=== PATIENT | female | born 1985 | race American Indian/Alaskan Native ===

== ENCOUNTER 2017-03-21 14:51 | Emergency (ER) | payer OTHER ==
[2017-03-21 14:58] VITALS: TEMP 98.8
[2017-03-21] MEDS ORDERED: Sodium Chloride 0.9% 1,000 ML IV STA (15:21)
--- NOTE | 2017-03-21 15:31 | ED PDOC ---
Arrival/HPI - General Chief Complaint: Headache Time Seen by Provider: 03/21/17 14:54 Historian: Patient - History of Present Illness Narrative History of Present Illness (Text): 03/21/17 15:26 31yo female with PMHx of Anemia and headaches, present with complaint of intermittent headache for a month now. States she started having watery diarrhea x 6 this morning with diffuse abdominal pain. Notes that her headache is similar to her previous headaches. States shew as told her headache is secondary to her Anemia. She notes that she was transfused the last time she had similar headache in November. States her daughter have viral sickness. + Nausea. Denies vomiting, melena, hematemesis, focal weakness, slurred speech, chest pain, SOB, fever, weakness, visual changes, travel, any other complaint. Past Medical History - Provider Review Nursing Documentation Reviewed: Yes - Cardiac Hx Cardiac Disorders: No - Pulmonary Hx Respiratory Disorders: No - Neurological Hx Neurological Disorder: No - HEENT Hx HEENT Disorder: No - Renal Hx Renal Disorder: No - Endocrine/Metabolic Hx Endocrine Disorders: No - Hematological/Oncological Hx Blood Disorders: Yes Hx Anemia: Yes - Integumentary Hx Dermatological Disorder: No - Musculoskeletal/Rheumatological Hx Musculoskeletal Disorders: No - Gastrointestinal Hx Gastrointestinal Disorders: No - Genitourinary/Gynecological Hx Genitourinary Disorders: No - Psychiatric Hx Psychophysiologic Disorder: No Hx Substance Use: No - Surgical History Hx Tubal Ligation: Yes Family/Social History - Physician Review Nursing Documentation Reviewed: Yes Family/Social History: Unknown Family HX Smoking Status: Never Smoked Hx Alcohol Use: Yes Frequency of alcohol use: Socially Hx Substance Use: No Allergies/Home Meds Allergies/Adverse Reactions: Allergies scallops Allergy (Verified 03/21/17 14:54) RASH Review of Systems - Physician Review All systems were reviewed & negative as marked: Yes - Review of Systems Constitutional: Normal Eyes: Normal ENT: Normal Respiratory: Normal Cardiovascular: Normal Gastrointestinal: Abdominal Pain, Diarrhea, Nausea. absent: Constipation, Vomiting, Hematemesis Genitourinary Female: Normal Musculoskeletal: Normal Skin: Normal Neurological: Headache. absent: Dizziness, Focal Weakness, Gait Changes, Speech Changes, Facial Droop Endocrine: Normal Hemo/Lymphatic: Normal Psychiatric: Normal Physical Exam Vital Signs Reviewed: Yes Vital Signs Temp Pulse Resp BP Pulse Ox 03/21/17 17:30 74 18 130/78 100 03/21/17 15:59 98.8 F 90 18 132/74 98 03/21/17 14:54 98.8 F 90 16 136/83 99 Temperature: Afebrile Blood Pressure: Normal Pulse: Regular Respiratory Rate: Normal Appearance: Positive for: Well-Appearing, Non-Toxic, Comfortable Pain Distress: None Mental Status: Positive for: Alert and Oriented X 3 - Systems Exam Head: Present: Atraumatic, Normocephalic Pupils: Present: PERRL Extroacular Muscles: Present: EOMI Conjunctiva: Present: Normal Mouth: Present: Moist Mucous Membranes Neck: Present: Normal Range of Motion Respiratory/Chest: Present: Clear to Auscultation, Good Air Exchange. No: Respiratory Distress, Accessory Muscle Use Cardiovascular: Present: Regular Rate and Rhythm, Normal S1, S2. No: Murmurs Abdomen: Present: Normal Bowel Sounds, Other (Soft). No: Tenderness, Distention , Peritoneal Signs, Rebound, Guarding, McBurney's Point Tender, Rovsing's Sign Present Back: Present: Normal Inspection Upper Extremity: Present: Normal Inspection. No: Cyanosis, Edema Lower Extremity: Present: Normal Inspection. No: Edema Neurological: Present: GCS=15, CN II-XII Intact, Speech Normal, Motor Func Grossly Intact, Normal Sensory Function, Normal Cerebellar Funct, Norm Deep Tendon Reflexes, Gait Normal, Memory Normal, Normal 2Pt Descrimination, Other ( No focal neurological deficit) Skin: Present: Warm, Dry, Normal Color. No: Rashes Psychiatric: Present: Alert, Oriented x 3, Normal Insight, Normal Concentration Medical Decision Making ED Course and Treatment: 03/21/17 16:51 31yo female in ED for headache x one month and diarrhea x6 since this morning. she was hemodyanmically stable in ED. Lab was unremarkable. Pt was hydrated , toradol and Zofran given. On r evaluation pt states her symptoms improved. She did not have diarrhea in ED. She will not be given antidiarrhea at this time, diarrhea only started this morning (To avoid dumping syndrome). She is eating and drinking well. she have no focal neurological deficit. she have seen a Doctor in the past for the is headache. No imaging will be done at this time. All result was DW the pt. She was advised to f/u with her PMD. Diarrhea likely viral in nature. Will DC home with rx of Fioricet. TRT ED for any new or worsening symptoms - Lab Interpretations Lab Results: 03/21/17 16:00 03/21/17 16:00 Lab Results 03/21/17 16:00: Sodium 140, Potassium 4.1, Chloride 108 H, Carbon Dioxide 21, Anion Gap 16, BUN 13, Creatinine 0.7, Est GFR ( Amer) > 60, Est GFR (Non- Af Amer) > 60, Random Glucose 93, Calcium 9.5, Total Bilirubin 0.4, AST 25, ALT 24, Alkaline Phosphatase 105, Total Protein 8.5 H, Albumin 4.4, Globulin 4.1, Albumin/Globulin Ratio 1.1, Lipase 130 03/21/17 16:00: Urine Color Yellow, Urine Appearance Clear, Urine pH 5.5, Ur Specific [place] >= 1.030, Urine Protein Trace H, Urine Glucose (UA) Negative, Urine Ketones Negative, Urine Blood Negative, Urine Nitrate Negative, Urine Bilirubin Negative, Urine Urobilinogen 0.2, Ur Leukocyte Esterase Negative, Urine RBC Negative, Urine WBC 2 - 5, Ur Epithelial Cells 3 - 4, Urine Bacteria Few 03/21/17 16:00: PT 12.2, INR 1.07, APTT 34.0 03/21/17 16:00: WBC 7.0, RBC 4.45, Hgb 10.0 L, Hct 33.1 L, MCV 74.4 L, MCH 22.5 L, MCHC 30.2 L, RDW 17.0 H, Plt Count 360, MPV 10.8, Gran % 78.1 H, Lymph % ( Auto) 17.4 L, [place] % (Auto) 3.7, Eos % (Auto) 0.7 L, Baso % (Auto) 0.1, Gran # 5.48, Lymph # 1.2, [place] # 0.3, Eos # 0.1, Baso # 0.01 - Medication Orders Current Medication Orders: Discontinued Medications Famotidine (Pepcid) 20 mg IVP STAT STA Stop: 03/21/17 15:22 Last Admin: 03/21/17 16:30 Dose: 20 mg IVP Administration Document 03/21/17 16:30 SF (Rec: 03/21/17 16:39 [facility] [id number]) Charges for Administration # of IVP Administrations 1 Sodium Chloride (Sodium Chloride 0.9%) 1,000 mls @ 1,000 mls/hr IV .Q1H STA Stop: 03/21/17 16:20 Last Admin: 03/21/17 16:41 Dose: 1,000 mls/hr eMAR Start Stop Document 03/21/17 16:41 SF (Rec: 03/21/17 16:41 SF [facility] [id number]) Intravenous Solution Start Date 03/21/17 Start Time 16:41 End Date 03/21/17 End time 17:41 Total Infusion Time 60 Ketorolac Tromethamine (Toradol) 30 mg IVP STAT STA Stop: 03/21/17 15:23 Last Admin: 03/21/17 16:30 Dose: 30 mg MAR Pain Assessment Document 03/21/17 16:30 SF (Rec: 03/21/17 16:39 [facility] [id number]) Pain Reassessment Is this a pain reassessment? Yes Sleep Is patient sleeping during reassessment? No Presence of Pain Presence of Pain Yes Pain Scale Used Pain Scale Used Numeric IVP Administration Document 03/21/17 16:30 SF (Rec: 03/21/17 16:39 [facility] [id number]) Charges for Administration # of IVP Administrations 1 Ondansetron HCl (Zofran Inj) 4 mg IVP STAT STA Stop: 03/21/17 15:22 Last Admin: 03/21/17 16:30 Dose: 4 mg IVP Administration Document 03/21/17 16:30 SF (Rec: 03/21/17 16:39 SF [facility] [id number]) Charges for Administration # of IVP Administrations 1 Disposition/Present on Arrival - Present on Arrival Any Indicators Present on Arrival: No History of DVT/PE: No History of Uncontrolled Diabetes: No Urinary Catheter: No History of Decub. Ulcer: No History Surgical Site Infection Following: None - Disposition Have Diagnosis and Disposition been Completed?: Yes Diagnosis: Diarrhea, Headache Disposition: HOME/ ROUTINE Disposition Time: 17:35 Patient Plan: Discharge Patient Problems: Current Active Problems Problem Status Onset Diarrhea Acute Headache Acute Condition: STABLE Discharge Instructions (ExitCare): Acute Headache (ED), Acute Diarrhea (ED) Additional Instructions: Drink plenty of fluid and take medications as directed Follow up with your doctor Return to Ex for any new or worsening symptoms Prescriptions: Acetaminophen/Butalbital/Caf [Fioricet] 1 tab PO Q6 #10 tab Ondansetron ODT [Zofran ODT] 4 mg PO Q6 #5 odt Referrals: Ashwin Quinn MD [Primary Care Provider] - Follow up with primary Forms: [employer] (Gabonese)
[2017-03-21 16:12] VITALS: RESP 18
[2017-03-21 16:34] LABS: BASO # 0.01 [, K/mm3] (0.0-2.0); BASO % 0.1 % (0.0-3.0); EOS # 0.1 (0.0-0.7); EOS % 0.7 % (1.5-5.0); GRAN # 5.48 (1.4-6.5); GRAN % 78.1 % (50.0-68.0); LYMPH # 1.2 (1.2-3.4); LYMPH % 17.4 % (22.0-35.0); MEAN CELL VOLUME 74.4 fl (80.0-105.0); MEAN CORPUSCULAR HEMOGLOBIN 22.5 pg (25.0-35.0); MEAN CORPUSCULAR HGB CONC 30.2 g/dl (31.0-37.0); MEAN PLATELET VOLUME 10.8 fl (7.0-11.0); MONO # 0.3 (0.1-0.6); MONO % 3.7 % (1.0-6.0); PH,URINE 5.5 (4.7-8.0); RBC 4.45 [, 10^6/uL] (3.5-6.1); URINE BILIRUBIN NEGATIVE (NEGATIVE); URINE BLOOD NEGATIVE (NEGATIVE); URINE GLUCOSE (UA) NEGATIVE (NEGATIVE); URINE LEUKOCYTE ESTERASE NEGATIVE Leu/uL (NEGATIVE); URINE NITRATE NEGATIVE (NEGATIVE); URINE PROTEIN TRACE mg/dL (<30 mg/dL); URINE UROBILINOGEN 0.2 E.U./dL (<1 E.U./dL)
[2017-03-21 16:39] LABS: URINE APPEARANCE CLEAR (CLEAR); URINE COLOR YELLOW (YELLOW)
[2017-03-21 16:43] LABS: INR 1.07 (0.93-1.08); PROTHROMBIN TIME 12.2 SECONDS (9.4-12.5)
[2017-03-21 16:45] LABS: ALBUMIN 4.4 g/dL (3.0-4.8); ALT/SGPT 24 U/L (7-56); AST/SGOT 25 U/L (14-36); BLOOD UREA NITROGEN 13 mg/dL (7-21); CALCIUM 9.5 mg/dL (8.4-10.5); GFR AFRICAN-AMERICAN > 60; GFR NON-AFRICAN AMERICAN > 60; LIPASE 130 U/L (23-300); URINE BACTERIA FEW (NEG); URINE RBC NEGATIVE /hpf (0-2)
[2017-03-21 16:46] LABS: ALB/GLOB RATIO 1.1 (1.1-1.8)
[2017-03-21 17:31] VITALS: BP 130/78; PULSE 74; O2SAT 100
== END 2017-03-21 17:30 | disposition home or self-care (01) ==
LOC: ED 14:51 → MERGE 14:51 → ED 17:30
DX: R51 Headache (principal); R19.7 Diarrhea, unspecified
CPT/HCPCS: 80053; 81001; 83690; 85025; 85610; 85730; 96361; 96374; 96375; 99285; J1885; J2405; J7040

== ENCOUNTER 2017-04-17 21:21 | Observation (INO) | payer OTHER ==
[2017-04-17] MEDS ORDERED: Morphine 4 mg/ml ISec IVP STA (21:50)
--- NOTE | 2017-04-17 21:56 | ED PDOC ---
Arrival/HPI <Danial Omalley - Last Filed: 04/17/17 22:34> <Julian Giang - Last Filed: 04/18/17 00:59> - General Chief Complaint: Abdominal Pain - History of Present Illness Narrative History of Present Illness (Text): 04/17/17 21:55 Pt is a 31 yo F with PMH of anemia and tubal ligation presents to ED due to a 1 day history of RLQ abdominal pain. Pt was evaluated at the [facility] a few months ago for a similar pain. At that time patient was told she had some gallstones and was discharged. Pt states that pain is sharp in the RLQ and does not radiate. Pt also complains of nausea and vomiting that started 2 hours prior to admission. However, throughout day patient tolerated some PO intake. Pt states that pain increased during car ride to Emergency department. Patient also complaining of headache and subjective fever. Pt states that last menstrual period was about 26 days ago and are regular. Pt denied chest pain, shortness of breath, chills, dizziness, palpitations, dysuria. PMD: Letty (Danial Omalley) Past Medical History - Reproductive Menopause: No - Cardiac Hx Cardiac Disorders: No Hx Hypertension: Yes (Gestational) - Pulmonary Hx Respiratory Disorders: No - Neurological Hx Neurological Disorder: No - HEENT Hx HEENT Disorder: No - Renal Hx Renal Disorder: No - Endocrine/Metabolic Hx Endocrine Disorders: No - Hematological/Oncological Hx Blood Disorders: Yes Hx Anemia: Yes - Integumentary Hx Dermatological Disorder: No - Musculoskeletal/Rheumatological Hx Musculoskeletal Disorders: No - Gastrointestinal Hx Gastrointestinal Disorders: No Hx Gall Bladder Disease: Yes (Stones) - Genitourinary/Gynecological Hx Genitourinary Disorders: No - Psychiatric Hx Psychophysiologic Disorder: No Hx Substance Use: No - Surgical History Hx Tubal Ligation: Yes - Anesthesia Hx Anesthesia: Yes (during delivery) Hx Anesthesia Reactions: No Hx Malignant Hyperthermia: No <Danial Omalley - Last Filed: 04/17/17 22:34> Family/Social History Family/Social History: No Known Family HX Smoking Status: Never Smoked Hx Alcohol Use: Yes Frequency of alcohol use: Socially Hx Substance Use: No <Danial Omalley - Last Filed: 04/17/17 22:34> Allergies/Home Meds <Danial Omalley - Last Filed: 04/17/17 22:34> <Julian Giang - Last Filed: 04/18/17 00:59> Allergies/Adverse Reactions: Allergies scallops Allergy (Mild, Verified 01/18/17 21:17) RASH Home Medications: Home Meds Medication Instructions Recorded Confirmed No Known Home Med 04/17/17 04/17/17 Review of Systems - Review of Systems Constitutional: Normal Eyes: Normal ENT: Normal Respiratory: Normal Cardiovascular: Normal Gastrointestinal: Abdominal Pain (RLQ) Genitourinary Female: Normal Musculoskeletal: Normal Skin: Normal Neurological: Normal Endocrine: Normal Hemo/Lymphatic: Normal Psychiatric: Normal <Danial Omalley - Last Filed: 04/17/17 22:34> Physical Exam Vital Signs Reviewed: Yes - Systems Exam Head: Present: Atraumatic, Normocephalic Extroacular Muscles: Present: EOMI Mouth: Present: Moist Mucous Membranes Respiratory/Chest: Present: Clear to Auscultation. No: Accessory Muscle Use, Wheezes, Rales, Rhonchi Abdomen: Present: Tenderness (RLQ), Other (Positive Psoas sign). No: Distention , Rebound, Guarding Back: Present: Normal Inspection Upper Extremity: Present: Normal Inspection Lower Extremity: Present: Normal Inspection Neurological: Present: GCS=15 Skin: Present: Warm, Dry, Normal Color Psychiatric: Present: Alert, Oriented x 3 <Danial Omalley - Last Filed: 04/17/17 22:34> Vital Signs Temp Pulse Resp BP Pulse Ox 04/17/17 21:24 98.9 F 78 17 150/92 H 98 Medical Decision Making - Transfer of Care Patient signed out to Dr:: Padmaja <Danial Omalley - Last Filed: 04/17/17 22:34> <Julian Giang - Last Filed: 04/18/17 00:59> ED Course and Treatment: 04/17/17 22:07 Assessment: 31 yo F presents to Emergency department with RLQ abdominal pain. Plan: - CBC - CMP - Coags - Lipase - CT abdomen/pelvis with IV contrast - Urinalysis, HCG urine - Morphine - Zofran 04/17/17 22:34 Patient endorsed over to Dr. Giang. Awaitng lab results and CT findings. Reassess and disposition upon result findings. (Danial Omalley) 04/17/17 22:34 Case endorsed to me pending CT Scan findings. Patient was seen and evaluated by medical insurance clerk. Agreed with clinical findings in HPI. Patient continues having RLQ abdominal pain. CT findings noted. PROCEDURE: CT Abdomen/Pelvis w/ IV Contrast Dictated and Authenticated by: Marcos Madera MD 04/18/2017 12:28 AM IMPRESSION: 1. Mild colitis versus underdistention. Clinical correlation is needed. 2. Cholelithiasis. 3. Liver lesion. For patients with low to average risk of malignancy, no further follow-up is necessary. For patients with high risk of malignancy (known malignancy that can metastasize or other risk factors), recommend follow-up abdominal CT or MR in 6 months. 4. Incidental/non-acute findings are described above. 04/18/17 00:38 Patient continues to have symptoms and will be kept for observation and further evaluation. Case discussed with Dr. Frank who is aware and agrees with the plan. Accepts patient into her service with consult under Dr. Sykes and Dr. Barcenas. ( Julian Giang) - Lab Interpretations Lab Results: 04/17/17 22:10 04/17/17 22:10 Lab Results 04/17/17 22:10: Sodium 143, Potassium 4.0, Chloride 106, Carbon Dioxide 24, Anion Gap 17, BUN 13, Creatinine 0.7, Est GFR ( Amer) > 60, Est GFR (Non- Af Amer) > 60, Random Glucose 96, Calcium 9.5, Magnesium 2.1, Total Bilirubin 0.2, AST 30, ALT 17, Alkaline Phosphatase 104, Total Protein 7.8, Albumin 4.3, Globulin 3.5, Albumin/Globulin Ratio 1.2, Lipase 173 04/17/17 22:10: Urine Color Light yellow, Urine Appearance Cloudy, Urine pH 6.0 , Ur Specific [place] >= 1.030, Urine Protein Negative, Urine Glucose (UA) Negative, Urine Ketones Negative, Urine Blood Moderate H, Urine Nitrate Negative , Urine Bilirubin Negative, Urine Urobilinogen 0.2, Ur Leukocyte Esterase Small H, Urine RBC 15 - 20, Urine WBC 5 - 10, Ur Epithelial Cells 6 - 8, Amorphous Sediment Few, Urine Bacteria Many, Urine Other [place], Urine HCG, Qual Negative 04/17/17 22:10: PT 11.9, INR 1.04, APTT 26.2 04/17/17 22:10: WBC 10.6 D, RBC 4.09, Hgb 8.9 L, Hct 29.9 L, MCV 73.1 L, MCH 21.8 L, MCHC 29.8 L, RDW 17.7 H, Plt Count 361, MPV 10.3, Gran % 80.3 H, Lymph % (Auto) 13.9 L, [place] % (Auto) 4.4, Eos % (Auto) 1.3 L, Baso % (Auto) 0.1, Gran # 8.48 H, Lymph # (Auto) 1.5, [place] # (Auto) 0.5, Eos # (Auto) 0.1, Baso # (Auto ) 0.01 - RAD Interpretation Radiology Orders: 04/17/17 21:50 ABDOMEN & PELVIS [ABD & PELVIS IV CONTRAST ONLY] [CT] Stat - Medication Orders Current Medication Orders: Discontinued Medications Morphine Sulfate (Morphine) 4 mg IVP STAT STA Stop: 04/17/17 21:51 Last Admin: 04/17/17 23:06 Dose: 4 mg MAR Pain Assessment Document 04/17/17 23:06 MS (Rec: 04/17/17 23:06 [id number] Pain Reassessment Is this a pain reassessment? No Sleep Is patient sleeping during reassessment? No Presence of Pain Presence of Pain Yes Pain Scale Used Pain Scale Used Numeric Location Pain Location Body Site Abdomen Description Description Intermittent Intensity of Pain at present 8 Pain Behavior Guarding Grasping Site IVP Administration Document 04/17/17 23:06 MS (Rec: 04/17/17 23:06 [id number] Charges for Administration # of IVP Administrations 1 Ondansetron HCl (Zofran Inj) 4 mg IVP STAT STA Stop: 04/17/17 21:51 Last Admin: 04/17/17 23:07 Dose: 4 mg IVP Administration Document 04/17/17 23:07 MS (Rec: 04/17/17 23:07 [id number]) Charges for Administration # of IVP Administrations 1 - PA / DORMITORY SUPERVISOR / Resident Statement / has reviewed & agrees with the documentation as recorded. MD/DO has examined the patient and agrees with the treatment plan. <Julian Giang - Last Filed: 04/18/17 00:59> Disposition/Present on Arrival - Present on Arrival Any Indicators Present on Arrival: No History of DVT/PE: No History of Uncontrolled Diabetes: No Urinary Catheter: No History of Decub. Ulcer: No History Surgical Site Infection Following: None - Disposition Have Diagnosis and Disposition been Completed?: Yes Disposition Time: 22:36 <Danial Omalley - Last Filed: 04/17/17 22:34> - Present on Arrival Any Indicators Present on Arrival: No History of DVT/PE: No History of Uncontrolled Diabetes: No Urinary Catheter: No History of Decub. Ulcer: No History Surgical Site Infection Following: None - Disposition Have Diagnosis and Disposition been Completed?: Yes <Julian Giang - Last Filed: 04/18/17 00:59> - Disposition Diagnosis: RLQ abdominal pain Patient Problems: Current Active Problems Problem Status Onset RLQ abdominal pain Acute Condition: STABLE Referrals: PCP,NO [Primary Care Provider] - Follow up with primary Forms: [employer] (Occitan)
[2017-04-17 22:51] LABS: URINE BILIRUBIN NEGATIVE (NEGATIVE); URINE BLOOD MODERATE (NEGATIVE); URINE GLUCOSE (UA) NEGATIVE (NEGATIVE); URINE LEUKOCYTE ESTERASE SMALL Leu/uL (NEGATIVE); URINE NITRATE NEGATIVE (NEGATIVE); URINE PROTEIN NEGATIVE mg/dL (<30 mg/dL); URINE UROBILINOGEN 0.2 E.U./dL (<1 E.U./dL)
[2017-04-17 22:52] LABS: URINE APPEARANCE CLOUDY (CLEAR); URINE COLOR LIGHT YELLOW (YELLOW)
[2017-04-17 22:53] LABS: BASO # 0.01 K/mm3 (0.0-2.0); BASO % 0.1 % (0.0-3.0); EOS # 0.1 (0.0-0.7); EOS % 1.3 % (1.5-5.0); GRAN # 8.48 (1.4-6.5); GRAN % 80.3 % (50.0-68.0); HCG,QUALITATIVE URINE NEGATIVE (NEGATIVE); HEMOGLOBIN 8.9 g/dL (12.0-16.0); LYMPH # 1.5 (1.2-3.4); LYMPH % 13.9 % (22.0-35.0); MEAN CELL VOLUME 73.1 fl (80.0-105.0); MEAN CORPUSCULAR HEMOGLOBIN 21.8 pg (25.0-35.0); MEAN CORPUSCULAR HGB CONC 29.8 g/dl (31.0-37.0); MEAN PLATELET VOLUME 10.3 fl (7.0-11.0); MONO # 0.5 (0.1-0.6); MONO % 4.4 % (1.0-6.0); RBC 4.09 10^6/uL (3.5-6.1); RED CELL DISTRIBUTION WIDTH 17.7 % (11.5-14.5); WHITE BLOOD COUNT 10.6 10^3/ul (4.5-11.0)
[2017-04-17 22:57] LABS: URINE AMORPHOUS SEDIMENT FEW; URINE BACTERIA MANY (NEG); URINE RBC 15 - 20 /hpf (0-2)
[2017-04-17 22:58] LABS: ALB/GLOB RATIO 1.2 (1.1-1.8); ALBUMIN 4.3 g/dL (3.0-4.8); ALT/SGPT 17 U/L (7-56); AST/SGOT 30 U/L (14-36); BLOOD UREA NITROGEN 13 mg/dL (7-21); CALCIUM 9.5 mg/dL (8.4-10.5); GFR AFRICAN-AMERICAN > 60; GFR NON-AFRICAN AMERICAN > 60; LIPASE 173 U/L (23-300); MAGNESIUM 2.1 mg/dL (1.7-2.2)
[2017-04-17 23:00] LABS: INR 1.04 (0.93-1.08); PARTIAL THROMBOPLASTIN TIME 26.2 Seconds (25.1-36.5); PROTHROMBIN TIME 11.9 SECONDS (9.4-12.5)
[2017-04-17] MEDS ORDERED: Iohexol 350 MG/100 ML VIAL ONE (23:01)
--- NOTE | 2017-04-18 00:28 | CT ---
EXAM: CT Abdomen and Pelvis With Intravenous Contrast CLINICAL HISTORY: 31 years old, female; Pain; Abdominal pain; Localized; Right; Prior surgery; Surgery date: 6+ months; Surgery type: HX tubal ligation TECHNIQUE: Axial computed tomography images of the abdomen and pelvis with intravenous contrast. All CT scans at this facility use one or more dose reduction techniques, viz.: automated exposure control; ma/kV adjustment per patient size (including targeted exams where dose is matched to indication; i.e. head); or iterative reconstruction technique. Coronal and sagittal reformatted images were created and reviewed. CONTRAST: 100 mL of omnipque 350 administered intravenously. COMPARISON: No relevant prior studies available. FINDINGS: Limitations: Motion artifact - mild. Lower thorax: Mild cardiomegaly. ABDOMEN: Liver: < 0.5 cm lesion. Gallbladder and bile ducts: Gallstones. No significant ductal dilation. Pancreas: No ductal dilation. No mass. Spleen: No splenomegaly. Adrenals: No mass. Kidneys and ureters: Probable LEFT renal cyst. No hydronephrosis. Stomach and bowel: Segmental areas of mild mural thickening vs underdistention of transverse, descending, sigmoid colon. No associated inflammatory stranding. No obstruction. Appendix: No findings to suggest acute appendicitis. PELVIS: Bladder: Unremarkable. Reproductive: Left ovarian follicle. ABDOMEN and PELVIS: Intraperitoneal space: Trace free fluid within pelvis. No free air. Bones/joints: Degenerative changes of pubic symphysis and sacroiliac joints. No acute fracture. Soft tissues: Tiny umbilical hernia containing fat. Vasculature: Unremarkable. No aneurysm. Lymph nodes: No pathologically enlarged lymph nodes. IMPRESSION: 1. Mild colitis versus underdistention. Clinical correlation is needed. 2. Cholelithiasis. 3. Liver lesion. For patients with low to average risk of malignancy, no further follow-up is necessary. For patients with high risk of malignancy (known malignancy that can metastasize or other risk factors), recommend follow-up abdominal CT or MR in 6 months. 4. Incidental/non-acute findings are described above.
[2017-04-18] MEDS ORDERED: Sodium Chloride 0.9% 1,000 ML IV STA (00:53)
[2017-04-18 01:57] VITALS: BMI 38.2
--- NOTE | 2017-04-18 04:57 | CP.PCM.PN ---
Subjective - Date & Time of Evaluation Date of Evaluation: 04/18/17 Time of Evaluation: 04:00 - Subjective Subjective: General surgery consult for Dr. Sykes consulted for: RLQ abdominal pain Patient is a 31F with PMH of anemia and tubal ligation who presented to ED with a few hours of RLQ abdominal pain and vomiting. Patient stated she had nausea for a few hours followed by sharp RLQ pain. Patient had a normal color, non- bloody, normal consistency bowel movement, which made the pain worse. Shortly afterwards patient had an episode of emesis with small tressa of bright red blood , non-bilious. Pain does not radiate. Patient denies any fevers, chills, back pain, dysuria, hematuria, diarrhea, constipation, or any other symptoms. Patient has had this once before in November for which she went to [facility] and was told she had gallstones but no cholecystitis and was sent home. Patient has regular periods every 4 weeks, with LMP 03/24/17 but has been spotting the week before her period the past 2 cycles. Is currently spotting. Denies any sick contacts or any association with particular foods. Patient denies any nausea or vomiting since last night and states she does not have pain currently. Objective - Vital Signs/Intake and Output Vital Signs (last 24 hours): Temp Pulse Resp BP Pulse Ox 98.1 F 72 18 129/81 100 04/18/17 01:57 04/18/17 01:57 04/18/17 01:57 04/18/17 01:57 04/18/17 01:57 - Medications Medications: Current Medications Sodium Chloride (Sodium Chloride 0.9%) 1,000 mls @ 100 mls/hr IV .Q10H STA Stop: 04/18/17 10:52 Last Admin: 04/18/17 02:26 Dose: 100 mls/hr - Labs Labs: PT 11.9 SECONDS (9.4-12.5) 04/17/17 22:10 INR 1.04 (0.93-1.08) 04/17/17 22:10 APTT 26.2 Seconds (25.1-36.5) 04/17/17 22:10 - Constitutional Appears: Well, Non-toxic, No Acute Distress - Head Exam Head Exam: ATRAUMATIC, NORMOCEPHALIC - Eye Exam Eye Exam: Normal appearance. absent: Conjunctival injection, Scleral icterus - ENT Exam ENT Exam: Mucous Membranes Moist - Respiratory Exam Respiratory Exam: NORMAL BREATHING PATTERN. absent: Accessory Muscle Use, Respiratory Distress - Cardiovascular Exam Cardiovascular Exam: RRR - GI/Abdominal Exam GI & Abdominal Exam: Soft, Tenderness (moderate tenderness to deep palpation RLQ ). absent: Distended, Hernia, Rebound Additional comments: negative anderson's, negative rovsings - Extremities Exam Extremities Exam: absent: Calf Tenderness, Pedal Edema, Tenderness - Back Exam Back Exam: absent: CVA tenderness (L), CVA tenderness (R) - Neurological Exam Neurological Exam: Alert, Awake, Oriented x3 - Psychiatric Exam Psychiatric exam: Normal Affect, Normal Mood - Skin Skin Exam: Dry, Intact, Normal Color, Warm Assessment and Plan - Assessment and Plan (Free Text) Assessment: 31F with PMH
--- NOTE | 2017-04-18 04:59 | CP.PCM.CON ---
<Gillian Wayne - Last Filed: 04/18/17 05:03> History of Present Illness - History of Present Illness History of Present Illness: General surgery consult for Dr. Sykes consulted for: RLQ abdominal pain Patient is a 31F with PMH of anemia and tubal ligation who presented to ED with a few hours of RLQ abdominal pain and vomiting. Patient stated she had nausea for a few hours followed by sharp RLQ pain. Patient had a normal color, non- bloody, normal consistency bowel movement, which made the pain worse. Shortly afterwards patient had an episode of emesis with small tressa of bright red blood , non-bilious. Pain does not radiate. Patient denies any fevers, chills, back pain, dysuria, hematuria, diarrhea, constipation, or any other symptoms. Patient has had this once before in November for which she went to [facility] and was told she had gallstones but no cholecystitis and was sent home. Patient has regular periods every 4 weeks, with LMP 03/24/17 but has been spotting the week before her period the past 2 cycles. Is currently spotting. Denies any sick contacts or any association with particular foods. Patient denies any nausea or vomiting since last night and states she does not have pain currently. Review of Systems - Review of Systems All systems: reviewed and no additional remarkable complaints except (as per HPI ) Past Patient History - Past Medical History & Family History Past Medical History?: Yes Pertinent Family History: family history of "stomach problems" and ovarian cysts - Past Social History Smoking Status: Never Smoked Alcohol: Occasional Drugs: Denies Home Situation {Lives}: With Family - CARDIAC Hx Hypertension: Yes (gestational) - PULMONARY Hx Respiratory Disorders: No - NEUROLOGICAL Hx Neurological Disorder: No - HEENT Hx HEENT Problems: No - RENAL Hx Chronic Kidney Disease: No - ENDOCRINE/METABOLIC Hx Endocrine Disorders: No - HEMATOLOGICAL/ONCOLOGICAL Hx Blood Disorders: Yes Hx Anemia: Yes (iron deficiency) - INTEGUMENTARY Hx Dermatological Problems: No - MUSCULOSKELETAL/RHEUMATOLOGICAL Hx Musculoskeletal Disorders: No Hx Falls: No - GASTROINTESTINAL Hx Gastrointestinal Disorders: Yes (gallstones) - GENITOURINARY/GYNECOLOGICAL Hx Genitourinary Disorders: No - PSYCHIATRIC Hx Psychophysiologic Disorder: No - SURGICAL HISTORY Hx Surgeries: Yes (tubal ligation) - ANESTHESIA Hx Anesthesia: Yes (during delivery) Hx Anesthesia Reactions: No Hx Malignant Hyperthermia: No Meds Allergies/Adverse Reactions: Allergies Allergy/AdvReac Type Severity Reaction Status Date / Time scallops Allergy Mild RASH Verified 01/18/17 21:17 - Medications Medications: Current Medications Sodium Chloride (Sodium Chloride 0.9%) 1,000 mls @ 100 mls/hr IV .Q10H STA Stop: 04/18/17 10:52 Last Admin: 04/18/17 02:26 Dose: 100 mls/hr Physical Exam - Additional Findings Additional findings: - Constitutional Appears: Well, Non-toxic, No Acute Distress - Head Exam Head Exam: ATRAUMATIC, NORMOCEPHALIC - Eye Exam Eye Exam: Normal appearance. absent: Conjunctival injection, Scleral icterus - ENT Exam ENT Exam: Mucous Membranes Moist - Respiratory Exam Respiratory Exam: NORMAL BREATHING PATTERN. absent: Accessory Muscle Use, Respiratory Distress - Cardiovascular Exam Cardiovascular Exam: RRR - GI/Abdominal Exam GI & Abdominal Exam: Soft, Tenderness (moderate tenderness to deep palpation RLQ ). absent: Distended, Hernia, Rebound Additional comments: negative anderson's, negative rovsings - Extremities Exam Extremities Exam: absent: Calf Tenderness, Pedal Edema, Tenderness - Back Exam Back Exam: absent: CVA tenderness (L), CVA tenderness (R) - Neurological Exam Neurological Exam: Alert, Awake, Oriented x3 - Psychiatric Exam Psychiatric exam: Normal Affect, Normal Mood - Skin Skin Exam: Dry, Intact, Normal Color, Warm Results - Vital Signs Recent Vital Signs: Last Vital Signs Temp 98.1 F 04/18/17 01:57 Pulse 72 04/18/17 01:57 Resp 18 04/18/17 01:57 BP 129/81 04/18/17 01:57 Pulse Ox 100 04/18/17 01:57 - Labs Result Diagrams: 04/17/17 22:10 04/17/17 22:10 - Imaging and Cardiology CT scan - abdomen Status: Image reviewed by me, Report reviewed by me CT scan - pelvis Status: Image reviewed by me, Report reviewed by me Assessment & Plan - Assessment and Plan (Free Text) Assessment: 31F with RLQ abdominal pain, nausea and vomiting. UTI vs gynecologic vs biliary colic--which is unlikely CT abdomen and pelvis: gallstones, no sign of cholecystitis. Normal caliber appendix with air throughout and no inflammation. Left ovarian cyst. UA: suspicious for UTI Plan: -No indication for emergent surgery--likely gynecologic in nature. -Abd US to R/O cholecystitis, though clinical picture is not indicative of this being the source of pain -recommend a pelvic ultrasound with a swab for STD's -Recommend gynecologic consult -CBC/CMP in AM -Continue NPO until after ultrasound -IVF, prn pain/nausea medication -Influenza swab Further recommendations per Dr. Onel Wayne, PGy2 <Raul Sykes - Last Filed: 04/21/17 19:16> Results - Vital Signs Recent Vital Signs: Last Vital Signs Temp 98.2 F 04/20/17 08:18 Pulse 81 04/20/17 08:18 Resp 20 04/20/17 08:18 BP 136/85 04/20/17 08:18 Pulse Ox 100 04/20/17 08:18 - Labs Result Diagrams: 04/19/17 07:00 04/19/17 07:30 Assessment & Plan - Assessment and Plan (Free Text) Assessment: Dx Mittleschmerz/Anemia/asymptomatic cholelithiasis Chava Office f/u:Low fat diet:Possible laparoscopic cholecystectomy Interval Baasis This consult done under my direct supervision Francie Sykes MD FACS
[2017-04-18] MEDS: Lactated Ringer's 1,000 ML IV SCH (05:48)
--- NOTE | 2017-04-18 07:34 | CP.PCM.PN ---
Subjective - Date & Time of Evaluation Date of Evaluation: 04/18/17 Time of Evaluation: 07:34 - Subjective Subjective: Patient was seen because she complained of nausea. Has no other complaints. No headache, no dizziness, no chest pain, no sob. Medical record was reviewed. This 31 year old woman was admitted for RLQ pain. Has PMH of obesity, anemia, migraines, cholelithiasis, tubal ligation. Objective - Vital Signs/Intake and Output Vital Signs (last 24 hours): Temp Pulse Resp BP Pulse Ox 98.1 F 72 18 129/81 100 04/18/17 01:57 04/18/17 01:57 04/18/17 01:57 04/18/17 01:57 04/18/17 01:57 - Medications Medications: Current Medications Acetaminophen (Tylenol 325mg Tab) 650 mg PO Q6H PRN PRN Reason: Pain, Mild (1-3) Lactated Ringer's (Lactated Ringer's) 1,000 mls @ 140 mls/hr IV .Q7H9M JAY Last Admin: 04/18/17 05:48 Dose: 140 mls/hr Ondansetron HCl (Zofran Inj) 4 mg IVP Q6H PRN PRN Reason: Nausea/Vomiting - Labs Labs: PT 11.9 SECONDS (9.4-12.5) 04/17/17 22:10 INR 1.04 (0.93-1.08) 04/17/17 22:10 APTT 26.2 Seconds (25.1-36.5) 04/17/17 22:10 - Constitutional Appears: Well, No Acute Distress - Head Exam Head Exam: ATRAUMATIC, NORMAL INSPECTION, NORMOCEPHALIC - Eye Exam Pupil Exam: NORMAL ACCOMODATION - ENT Exam ENT Exam: Normal External Ear Exam - Neck Exam Neck Exam: Normal Inspection - Respiratory Exam Respiratory Exam: NORMAL BREATHING PATTERN - Cardiovascular Exam Cardiovascular Exam: absent: JVD - GI/Abdominal Exam GI & Abdominal Exam: absent: Distended - Rectal Exam Rectal Exam: Deferred - Exam Additional comments: Deferred. - Extremities Exam Extremities Exam: Normal Inspection - Back Exam Back Exam: NORMAL INSPECTION - Neurological Exam Neurological Exam: Alert, Oriented x3 - Psychiatric Exam Psychiatric exam: Normal Affect, Normal Mood - Skin Skin Exam: Normal Color Assessment and Plan - Assessment and Plan (Free Text) Assessment: Nausea. RLQ pain. History migraine. Obesity. Anemia. Cholelithiasis. Plan: Zofran 4 mg IV stat. Continue present management as per PMD.
--- NOTE | 2017-04-18 10:19 | US ---
HISTORY: Cholelithiasis. Abdominal pain. COMPARISON: Comparison made with CT scan abdomen pelvis 04/17/2012. TECHNIQUE: Sonographic evaluation of the abdomen. FINDINGS: LIVER: The liver was measured at approximately 14 cm in CC dimension on this study however measured nearly [address] scan in CC dimension. Liver demonstrates smooth contour. . No obvious hepatic masses or collections seen on this images presented. S. No intrahepatic bile duct dilatation. GALLBLADDER: Intraluminal gallbladder calculi again noted. . No evidence of pericholecystic fluid collections or sonographic Sanchez sign COMMON BILE DUCT: Measures 3.3 mm. No stones. No dilatation. PANCREAS: Unremarkable as visualized. No mass. No ductal dilatation. RIGHT KIDNEY: Right kidney measures approximately 10.3 x 4.1 x 5.5cm. Normal echogenicity. No calculus, mass, or hydronephrosis. LEFT KIDNEY: Left kidney measures approximately 10.3 x 4.7 x 5.8cm. Normal echogenicity. No calculus, mass, or hydronephrosis. SPLEEN: Exhibits normal size without masses collections or shadowing calculi. No mass. AORTA: No aneurysmal dilatation. IVC: Unremarkable. OTHER FINDINGS: None. IMPRESSION: Cholelithiasis. No evidence of sonographic Sanchez sign. . Hepatomegaly.
--- NOTE | 2017-04-18 17:00 | US ---
HISTORY: RLQ pain COMPARISON: Comparison made with CT scan abdomen pelvis 04/17/2017 TECHNIQUE: Transabdominal sonographic evaluation of the pelvis performed. FINDINGS: UTERUS: Uterus is anteverted measuring approximately 7.9 x 3.8 x 6.5 cm. Normal in size and appearance. No fibroid or other mass lesion seen. ENDOMETRIUM: Measures 3.3 mm in diameter. Unremarkable. CERVIX: No cervical abnormality identified. RIGHT OVARY: Right ovary measures approximately 2.5 x 1.7 x 2.4 cm. No solid mass. Normal flow. LEFT OVARY: Left ovary measures approximate 3.3 x 1.9 x 3.4 cm. No solid mass. Normal flow. FREE FLUID: No significant free fluid noted. OTHER FINDINGS: None. IMPRESSION: Unremarkable transabdominal pelvic ultrasound.
[2017-04-18] MEDS ORDERED: Naproxen 550 mg Tab PO STA (23:33)
--- NOTE | 2017-04-19 00:09 | CP.PCM.PN ---
Subjective - Date & Time of Evaluation Date of Evaluation: 04/19/17 Time of Evaluation: 00:07 - Subjective Subjective: Patient was seen because she complained of headache. She did not want to take Imitrex which was ordered for her by her PMD. She states she has history of migraines. Denies nausea, dizziness, weakness, paraesthesia. This 31 year old woman is admited for RLQ pain. She has PMH of Anemia, obesity, migraines,cholelithiasis, tubal ligation. Objective - Vital Signs/Intake and Output Vital Signs (last 24 hours): Temp Pulse Resp BP Pulse Ox 98.6 F 68 20 133/80 100 04/18/17 16:37 04/18/17 16:37 04/18/17 16:37 04/18/17 16:37 04/18/17 16:37 Intake and Output: 04/18/17 04/19/17 18:59 06:59 Intake Total 420 Balance 420 - Medications Medications: Current Medications Acetaminophen (Tylenol 325mg Tab) 650 mg PO Q6H PRN PRN Reason: Pain, Mild (1-3) Last Admin: 04/18/17 10:11 Dose: 650 mg Lactated Ringer's (Lactated Ringer's) 1,000 mls @ 140 mls/hr IV .Q7H9M JAY Last Admin: 04/18/17 05:48 Dose: 140 mls/hr Ketorolac Tromethamine (Toradol) 30 mg IVP Q6 PRN PRN Reason: Pain, Mild (1-3) Last Admin: 04/18/17 22:16 Dose: 30 mg Ondansetron HCl (Zofran Inj) 4 mg IVP Q4H PRN PRN Reason: Nausea/Vomiting Last Admin: 04/18/17 18:40 Dose: 4 mg Pantoprazole Sodium (Protonix Inj) 40 mg IVP DAILY [facility] Last Admin: 04/18/17 10:10 Dose: 40 mg - Labs Labs: PT 11.9 SECONDS (9.4-12.5) 04/17/17 22:10 INR 1.04 (0.93-1.08) 04/17/17 22:10 APTT 26.2 Seconds (25.1-36.5) 04/17/17 22:10 Most Recent Lab Values WBC 10.6 10^3/ul (4.5-11.0) D 04/17/17 22:10 RBC 4.09 10^6/uL (3.5-6.1) 04/17/17 22:10 Hgb 8.9 g/dL (12.0-16.0) L 04/17/17 22:10 Hct 29.9 % (36.0-48.0) L 04/17/17 22:10 MCV 73.1 fl (80.0-105.0) L 04/17/17 22:10 MCH 21.8 pg (25.0-35.0) L 04/17/17 22:10 MCHC 29.8 g/dl (31.0-37.0) L 04/17/17 22:10 RDW 17.7 % (11.5-14.5) H 04/17/17 22:10 Plt Count 361 10^3/uL (120.0-450.0) 04/17/17 22:10 MPV 10.3 fl (7.0-11.0) 04/17/17 22:10 Gran % 80.3 % (50.0-68.0) H 04/17/17 22:10 Lymph % (Auto) 13.9 % (22.0-35.0) L 04/17/17 22:10 [place] % (Auto) 4.4 % (1.0-6.0) 04/17/17 22:10 Eos % (Auto) 1.3 % (1.5-5.0) L 04/17/17 22:10 Baso % (Auto) 0.1 % (0.0-3.0) 04/17/17 22:10 Gran # 8.48 (1.4-6.5) H 04/17/17 22:10 Lymph # (Auto) 1.5 (1.2-3.4) 04/17/17 22:10 [place] # (Auto) 0.5 (0.1-0.6) 04/17/17 22:10 Eos # (Auto) 0.1 (0.0-0.7) 04/17/17 22:10 Baso # (Auto) 0.01 K/mm3 (0.0-2.0) 04/17/17 22:10 PT 11.9 SECONDS (9.4-12.5) 04/17/17 22:10 INR 1.04 (0.93-1.08) 04/17/17 22:10 APTT 26.2 Seconds (25.1-36.5) 04/17/17 22:10 Sodium 143 mmol/L (132-148) 04/17/17 22:10 Potassium 4.0 mmol/L (3.6-5.0) 04/17/17 22:10 Chloride 106 mmol/L (98-107) 04/17/17 22:10 Carbon Dioxide 24 mmol/L (21-33) 04/17/17 22:10 Anion Gap 17 (10-20) 04/17/17 22:10 BUN 13 mg/dL (7-21) 04/17/17 22:10 Creatinine 0.7 mg/dl (0.7-1.2) 04/17/17 22:10 Est GFR ( Amer) > 60 04/17/17 22:10 Est GFR (Non-Af Amer) > 60 04/17/17 22:10 Random Glucose 96 mg/dL (70-110) 04/17/17 22:10 Calcium 9.5 mg/dL (8.4-10.5) 04/17/17 22:10 Magnesium 2.1 mg/dL (1.7-2.2) 04/17/17 22:10 Total Bilirubin 0.2 mg/dL (0.2-1.3) 04/17/17 22:10 AST 30 U/L (14-36) 04/17/17 22:10 ALT 17 U/L (7-56) 04/17/17 22:10 Alkaline Phosphatase 104 U/L (38-126) 04/17/17 22:10 Total Protein 7.8 g/dL (5.8-8.3) 04/17/17 22:10 Albumin 4.3 g/dL (3.0-4.8) 04/17/17 22:10 Globulin 3.5 gm/dL 04/17/17 22:10 Albumin/Globulin Ratio 1.2 (1.1-1.8) 04/17/17 22:10 Lipase 173 U/L (23-300) 04/17/17 22:10 Urine Color Light yellow (YELLOW) 04/17/17 22:10 Urine Appearance Cloudy (CLEAR) 04/17/17 22:10 Urine pH 6.0 (4.7-8.0) 04/17/17 22:10 Ur Specific [place] >= 1.030 (1.005-1.035) 04/17/17 22:10 Urine Protein Negative mg/dL (<30 mg/dL) 04/17/17 22:10 Urine Glucose (UA) Negative mg/dL (NEGATIVE) 04/17/17 22:10 Urine Ketones Negative mg/dL (NEGATIVE) 04/17/17 22:10 Urine Blood Moderate (NEGATIVE) H 04/17/17 22:10 Urine Nitrate Negative (NEGATIVE) 04/17/17 22:10 Urine Bilirubin Negative (NEGATIVE) 04/17/17 22:10 Urine Urobilinogen 0.2 E.U./dL (<1 E.U./dL) 04/17/17 22:10 Ur Leukocyte Esterase Small Su/uL (NEGATIVE) H 04/17/17 22:10 Urine RBC 15 - 20 /hpf (0-2) 04/17/17 22:10 Urine WBC 5 - 10 /hpf (0-6) 04/17/17 22:10 Ur Epithelial Cells 6 - 8 /hpf (0-5) 04/17/17 22:10 Amorphous Sediment Few 04/17/17 22:10 Urine Bacteria Many (NEG) 04/17/17 22:10 Urine Other Uyeast 04/17/17 22:10 Urine HCG, Qual Negative (NEGATIVE) 04/17/17 22:10 Influenza Typ A,B (EIA) Negative for flu a/b (NEGATIVE) 04/18/17 04:18 - Constitutional Appears: Well, No Acute Distress - Head Exam Head Exam: ATRAUMATIC, NORMAL INSPECTION, NORMOCEPHALIC - Eye Exam Eye Exam: Normal appearance - ENT Exam ENT Exam: Normal External Ear Exam - Neck Exam Neck Exam: Normal Inspection - Respiratory Exam Respiratory Exam: NORMAL BREATHING PATTERN - Cardiovascular Exam Cardiovascular Exam: absent: JVD - GI/Abdominal Exam GI & Abdominal Exam: absent: Distended - Rectal Exam Rectal Exam: Deferred - Exam Additional comments: Deferred. - Extremities Exam Extremities Exam: Normal Inspection - Back Exam Back Exam: NORMAL INSPECTION - Neurological Exam Neurological Exam: Alert, Awake, Oriented x3 - Psychiatric Exam Psychiatric exam: Normal Affect, Normal Mood - Skin Skin Exam: Normal Color Assessment and Plan - Assessment and Plan (Free Text) Assessment: Migraine headache. RLQ pain. Obesity. Anemia. Cholelithiasis. Plan: Naprosyn 550 mg PO x 1. Continue present management as per PMD.
--- NOTE | 2017-04-19 06:32 | HP ---
CHIEF COMPLAINT: Abdominal pain, headache. HISTORY OF PRESENT ILLNESS: Ms. Ruth Ann Araya is 31-year-old female with past medical history of anemia, tubal ligation,came to the emergency room due to 1-day history of right lower quadrant abdominal pain. The patient was earlier admitted to Emergency Department a few months ago for a similar pain. At that time, the patient was told that she has some gallstones and was discharged. Patient states that the pain is sharp, in the right lower quadrant and does not radiate. Patient is also complaining of nausea and vomiting that started 2 hours prior to the admission; however, today the patient tolerated some p.o. intake. Patient stated that the pain increased during movement. Patient is also complaining of headache and subjective fever. Last month days ago and was regular. Patient denies shortness of breath, palpitation, hematuria, hematochezia. Now getting pain medication but still having pain. Surgery is on the case. PAST MEDICAL HISTORY: Gestational hypertension, history of asthma, history of gallstones. FAMILY HISTORY: Family and mother noncontributory. HABITS: No smoking. No drugs. No ethanol. ALLERGIES: THE PATIENT IS ALLERGIC TO SCALLOPS. HOME MEDICATIONS: Unknown. REVIEW OF SYSTEMS: The patient was seen and examined at the bedside in her room. Still complaining of abdominal pain and headache. No shortness of breath. No dizziness. No chest pain. No hematuria or hematochezia. No fever. No chills. PHYSICAL EXAMINATION: VITAL SIGNS: Temperature 98.6, pulse 58, blood pressure 133/82, respiratory rate 20. HEENT: Head: Normocephalic, atraumatic. Eyes: PERRLA, extraocular muscles intact. Conjunctivae clear. Nose patent. Mucous membranes moist. NECK: Supple. No carotid bruits. No JVD or thyromegaly. CHEST: Bilaterally symmetrical. HEART: S1 and S2 positive. LUNGS: Clear to auscultation. ABDOMEN: Soft. Bowel sounds present. No organomegaly. EXTREMITIES: No edema. No cyanosis. NEUROLOGIC: Patient is awake and alert, moving all four extremities. No focal deficit. LABORATORY DATA: White blood cells 10.6, hemoglobin 8.9, hematocrit 29.9, platelets 361. Sodium 143, potassium 4.0, BUN is noted creatinine 0.7. Calcium is 9.5. ASSESSMENT AND PLAN: Ms. Ruth Ann Araya is 31-year-old female with anemia, hematuria, urinary tract infection, influenza type A and B is negative, came with abdominal pain and headache. CAT scan of the abdomen and pelvis done showed mild colitis versus under distention, cholelithiasis, liver lesion. Recommending 6-month followup with CAT scan. An abdominal ultrasound is done, reviewed by me. According to that, cholelithiasis with no evidence of sonographic Sanchez sign, hepatomegaly. Went for pelvic ultrasound, unremarkable transabdominal pelvic ultrasound, seen by Surgery. Urinary tract infection versus Gynecology versus biliary colic which is unlikely. No signs of cholecystitis. Normal caliber appendix with air throughout and no inflammation. Left ovarian cyst. No indication of emergency surgery as per surgeon. We will call Gynecology consult. as per surgery. For migraine Dilaudid given was not helping for headache and Imitrex was given. GI is on the case also. Patient is getting Toradol. We will follow up. Paula Frank MD MTDKaryn
[2017-04-19 07:47] LABS: HEMOGLOBIN 8.9 g/dL (12.0-16.0); MEAN CELL VOLUME 73.8 fl (80.0-105.0); MEAN CORPUSCULAR HEMOGLOBIN 21.6 pg (25.0-35.0); MEAN CORPUSCULAR HGB CONC 29.3 g/dl (31.0-37.0); MEAN PLATELET VOLUME 9.7 fl (7.0-11.0); RBC 4.12 10^6/uL (3.5-6.1); RED CELL DISTRIBUTION WIDTH 17.5 % (11.5-14.5); WHITE BLOOD COUNT 5.3 10^3/ul (4.5-11.0)
[2017-04-19 08:22] LABS: BLOOD UREA NITROGEN 7 mg/dL (7-21); CALCIUM 9.2 mg/dL (8.4-10.5); GFR AFRICAN-AMERICAN > 60; GFR NON-AFRICAN AMERICAN > 60; HDL CHOLESTEROL 43 mg/dL (29-60)
[2017-04-19 08:23] LABS: LDL CHOLESTEROL 103 mg/dL (0-129)
[2017-04-19 08:28] LABS: IRON 27 ug/dL (45-180)
[2017-04-19 08:38] LABS: % IRON SATURATION 8 % (20-55); TOTAL IRON BINDING CAPACITY 359 ug/dL (265-497)
--- NOTE | 2017-04-19 09:08 | CP.PCM.PN ---
Subjective - Date & Time of Evaluation Date of Evaluation: 04/19/17 Time of Evaluation: 09:04 - Subjective Subjective: General surgery progress note for Dr. Sykes Patient seen and examined at bedside. Patient complains of mild abdominal pain this am. No nausea vomiting, tolerating clear liquid diet. Objective - Vital Signs/Intake and Output Vital Signs (last 24 hours): Temp Pulse Resp BP Pulse Ox 98.6 F 68 20 133/80 100 04/18/17 16:37 04/18/17 16:37 04/18/17 16:37 04/18/17 16:37 04/18/17 16:37 Intake and Output: 04/19/17 04/19/17 06:59 18:59 Intake Total 420 Balance 420 - Medications Medications: Current Medications Acetaminophen (Tylenol 325mg Tab) 650 mg PO Q6H PRN PRN Reason: Pain, Mild (1-3) Last Admin: 04/18/17 10:11 Dose: 650 mg Lactated Ringer's (Lactated Ringer's) 1,000 mls @ 140 mls/hr IV .Q7H9M [facility] Last Admin: 04/18/17 05:48 Dose: 140 mls/hr Ketorolac Tromethamine (Toradol) 30 mg IVP Q6 PRN PRN Reason: Pain, Mild (1-3) Last Admin: 04/18/17 22:16 Dose: 30 mg Ondansetron HCl (Zofran Inj) 4 mg IVP Q4H PRN PRN Reason: Nausea/Vomiting Last Admin: 04/18/17 18:40 Dose: 4 mg Pantoprazole Sodium (Protonix Inj) 40 mg IVP DAILY [facility] Last Admin: 04/18/17 10:10 Dose: 40 mg - Labs Labs: 04/19/17 07:00 04/19/17 07:30 PT 11.9 SECONDS (9.4-12.5) 04/17/17 22:10 INR 1.04 (0.93-1.08) 04/17/17 22:10 APTT 26.2 Seconds (25.1-36.5) 04/17/17 22:10 - Constitutional Appears: Well - Head Exam Head Exam: ATRAUMATIC, NORMAL INSPECTION, NORMOCEPHALIC - Eye Exam Eye Exam: EOMI, Normal appearance, PERRL Pupil Exam: NORMAL ACCOMODATION, PERRL - ENT Exam ENT Exam: Mucous Membranes Moist, Normal Exam - Neck Exam Neck Exam: Full ROM, Normal Inspection. absent: Lymphadenopathy - Respiratory Exam Respiratory Exam: Clear to Ausculation Bilateral, NORMAL BREATHING PATTERN - Cardiovascular Exam Cardiovascular Exam: REGULAR RHYTHM, +S1, +S2. absent: Murmur - GI/Abdominal Exam GI & Abdominal Exam: Soft, Normal Bowel Sounds. absent: Tenderness - Rectal Exam Rectal Exam: NORMAL INSPECTION - Exam Exam: Circumcision, NORMAL INSPECTION External exam: NORMAL EXTERNAL EXAM Speculum exam: NORMAL SPECULUM EXAM Bimanual exam: NORMAL BIMANUAL EXAM - Extremities Exam Extremities Exam: Full ROM, Normal Capillary Refill, Normal Inspection. absent : Joint Swelling, Pedal Edema - Back Exam Back Exam: NORMAL INSPECTION - Neurological Exam Neurological Exam: Alert, Awake, CN II-XII Intact, Normal Gait, Oriented x3 - Psychiatric Exam Psychiatric exam: Normal Affect, Normal Mood - Skin Skin Exam: Dry, Intact, Normal Color, Warm Assessment and Plan - Assessment and Plan (Free Text) Assessment: Assessment and Plan 31F with RLQ abdominal pain, nausea and vomiting. UTI vs gynecologic vs biliary colic--which is unlikely CT abdomen and pelvis: gallstones, no sign of cholecystitis. Normal caliber appendix with air throughout and no inflammation. Left ovarian cyst. UA: suspicious for UTI Plan: -No indication for emergent surgery--likely gynecologic in nature. -Abd US to R/O cholecystitis, though clinical picture is not indicative of this being the source of pain -Transvaginal ultrasound unremarkable -Prn pain and nausea medication -At this time, no further surgical intervention required -Further recs per Dr. Sykes
[2017-04-19] MEDS: Lactated Ringer's 1,000 ML IV SCH (09:11)
--- NOTE | 2017-04-19 10:29 | CON ---
DATE: 04/18/2017 REASON FOR CONSULTATION: Abdominal pain. HISTORY OF PRESENT ILLNESS: This 31-year-old patient with past medical history of known gallstones, presented with acute onset of an abdominal pain that started yesterday, mainly in the right lower quadrant area to groin area. Sharp discomfort. She had a similar episode once in the past. She was in the emergency room in [place]. She was told to have gallstones at the time. Denies any severe fever. No dysuria, no hematuria. Her last menstrual period was 03/24/2017. Other past medical history, significant as above. History of anemia, iron deficiency in the past. SOCIAL HISTORY: Alcohol occasionally. Denies smoking. REVIEW OF SYSTEMS: Positive as above. ALLERGIES: SHE IS ALLERGIC TO SCALLOPS, CAUSE RASH. PHYSICAL EXAMINATION: GENERAL: The patient is lying on the bed, not in acute distress. VITAL SIGNS: Temperature is 98.1, blood pressure 129/81, respirations 18, O2 saturation is 100%. HEENT: Atraumatic, anicteric. NECK: Supple. HEART: S1 and S2 heard. LUNGS: Bilateral air entry present. ABDOMEN: Soft. There is tenderness present in the right lower quadrant towards the groin area. There is no rebound or guarding. There is no tenderness to the epigastric or right upper quadrant area. EXTREMITIES: No cyanosis, no clubbing, no edema. NEUROLOGICAL: Alert, oriented, moves all the extremities. LABORATORY DATA: Hemoglobin 8.9, hematocrit 29.9, WBC 10.6, platelets 361. Chemistries and LFTs essentially unremarkable. The patient did have influenza test negative. CT scan of the abdomen and pelvis was done which was reviewed. It showed mild thickening versus under distention of the left colon, descending colon. Cholelithiasis and small hepatic lesion and gallstones. The patient had an ultrasound scan of the abdomen done which showed gallstones, normal CBD, gallbladder wall was normal. IMPRESSION: 1. This 31-year-old patient presented with acute onset of pain in the right lower quadrant area, more towards the groin area, sharp pain. Less likely, this is a gallstone. The pain is more localized to the right lower quadrant area. Rule out gynecologic etiology. Rule out ovarian cystic lesion. The patient is due to go for a pelvic ultrasound. Other differential diagnosis should include urinary tract infection. The patient has white blood cell count of 10 to 15 and urine red blood cell count of 5 to 10. Urinary tract infection should be considered in the differential diagnosis, less likely gallstones. 2. History of gallstones. 3. Iron-deficiency anemia. Rule out gastrointestinal source of blood loss, rule out heavy periods. RECOMMENDATIONS: 1. Followup of the pelvic ultrasound. 2. Urine culture. 3. Clear liquid diet. 4. We will continue to closely followup and suggest further recommendations based on the clinical course. Discussed with the patient and also patient's who was at bedside. Kacey Barcenas MD [facility]
--- NOTE | 2017-04-19 10:36 | CP.PCM.PCO ---
Physician Communication Note - Physician Communication Note Physician Communication Note: Dx Mittleschmerz/Asymptomatic cholelithiasis/ Anemia--No Surgery debbi
[2017-04-19] MEDS ORDERED: Gadodiamide 287 MG/ML VIAL (15ML) IV ONE (10:57)
[2017-04-19 12:25] LABS: FOLATE > 20.0 ng/mL
--- NOTE | 2017-04-19 13:41 | MRI ---
PROCEDURE: Magnetic Resonance Cholangiopancreatography HISTORY: Attention liver lesion COMPARISON: 04/17/2017. TECHNIQUE: Multiplanar, multisequence MR images of the abdomen were obtained, including heavily T2 weighted MRCP images of the biliary system. Rotating maximum intensity projection images of the biliary system were generated. Postcontrast imaging of the abdomen. 15 cc of Omniscan FINDINGS: MRCP: The common bile duct is of a normal caliber. No evidence of choledocholithiasis. No intrahepatic biliary ductal dilatation. LIVER: There is a 5 mm lesion adjacent to the gallbladder fundus. This shows no enhancement and most likely represents a small cyst. GALLBLADDER: Multiple stones are seen in the gallbladder. SPLEEN: Unremarkable. PANCREAS: Unremarkable. ADRENALS: Unremarkable. KIDNEYS: Unremarkable. AORTA: No aneurysm. ASCITES: None. OTHER FINDINGS: None. IMPRESSION: Multiple gallstones. 5 mm liver lesion. Probable cyst. No enhancement
[2017-04-19] MEDS ORDERED: Propofol 10 mg/ml Inj (20 ML) ONE (15:02)
[2017-04-19] MEDS ORDERED: Lidocaine 1% Inj (20ml) ONE (15:03)
[2017-04-19] MEDS ORDERED: Midazolam 2 MG/2 ML VIAL ONE (15:03)
[2017-04-19 15:10] VITALS: TEMP 98.2
[2017-04-19] MEDS ORDERED: Sodium Chloride 0.9% 1,000 ML IV SCH (15:45)
[2017-04-19 16:07] VITALS: O2SAT 100
[2017-04-19] MEDS: levoFLOXacin 500 MG TAB PO SCH (16:59)
--- NOTE | 2017-04-20 04:09 | PN ---
DATE: SUBJECTIVE: Patient is a 31-year-old female. Patient was seen and examined at the bedside, looking comfortable. Went for MRCP today. No nausea, vomiting, diarrhea. No hematuria, hematochezia. No headache. No dizziness. No chest pain. No palpitation. No fever, no chills. PHYSICAL EXAMINATION: VITAL SIGNS: Temperature 98.2, pulse 63, blood pressure 124/71, respiratory rate 18. HEENT: Head: Normocephalic, atraumatic. Eyes: PERRLA, extraocular muscles intact. Conjunctivae clear. Nose patent. Mucous membranes moist. NECK: Supple. No carotid bruits. No JVD or thyromegaly. CHEST: Bilaterally symmetrical. HEART: S1 and S2 positive. LUNGS: Clear to auscultation. ABDOMEN: Soft. Bowel sounds present. No organomegaly. EXTREMITIES: No edema. No cyanosis. NEUROLOGIC: Patient is awake and alert, moving all four extremities. No focal deficit. MEDICATIONS: Lactated Ringer, Levaquin, Protonix, Toradol, Tylenol. LABORATORY DATA: White blood cells 5.3, hemoglobin 8.9, hematocrit 30.4, platelets 320. Sodium 143, potassium 3.6, BUN 7, creatinine 0.7, glucose 82. ASSESSMENT AND PLAN: Ms. Ruth Ann Araya is a 31-year-old lady with anemia, iron deficiency, hematuria, urinary tract infection, went for endoscopic retrograde cholangiopancreatography. According to Dr. Nasir Mancia, multiple gallstones 5 mm liver lesion, probably cyst, no enhancement. Went for esophagogastroduodenoscopy with biopsy by Dr. Barcenas, has celiac disease, gastritis, ruled out Helicobacter pylori, ruled out Barrette esophagus. According to Dr. Miramontes, patient does not need surgery. Urinary tract infection versus gynecologic problems verus biliary colic. No signs of cholecystitis. Suspicious of urinary tract infection. No indication of emergent surgery. Likely gynecologic in nature. Abnormal ultrasound, ruled out cholecystitis clinically. Picture is not indicative of this being the source of pain. Transultrasound unremarkable. P.r.n. pain, nausea medications. Discussion done with Dr. Barcenas on phone. Gastrointestinal, deep vein thrombosis prophylaxis. Repeat labs. We will follow up. Paula Frank MD [facility]
--- NOTE | 2017-04-20 07:19 | CP.PCM.PCO ---
Physician Communication Note - Physician Communication Note Physician Communication Note: No GB Surgery now-office f/u debbi
[2017-04-20 08:19] VITALS: BP 136/85; PULSE 81; RESP 20
[2017-04-20] MEDS: levoFLOXacin 500 MG TAB PO SCH (10:14)
--- NOTE | 2017-04-20 18:37 | CP.PCM.PN ---
Subjective - Date & Time of Evaluation Date of Evaluation: 04/20/17 Time of Evaluation: 10:15 - Subjective Subjective: Seen and examined at the bedside earlier today, chart review. Patient does report improvement of abdominal pain. Tolerated oral intake denies nausea, vomiting, shortness of breath, chest pain fever or chills. Had endoscopy yesterday and found to have appearance of short segment Lopez's esophagus status post biopsy, the duodenum appeared normal. Patient also had MRCP that did show multiple gallstones and a 5 mm liver lesion probable cyst. No acute overnight events reported. Objective - Vital Signs/Intake and Output Vital Signs (last 24 hours): Temp Pulse Resp BP Pulse Ox 98.2 F 81 20 136/85 100 04/20/17 08:18 04/20/17 08:18 04/20/17 08:18 04/20/17 08:18 04/20/17 08:18 Intake and Output: 04/20/17 04/20/17 06:59 18:59 Intake Total 2019 Balance 2019 - Labs Labs: 04/19/17 07:00 04/19/17 07:30 PT 11.9 SECONDS (9.4-12.5) 04/17/17 22:10 INR 1.04 (0.93-1.08) 04/17/17 22:10 APTT 26.2 Seconds (25.1-36.5) 04/17/17 22:10 - Constitutional Appears: No Acute Distress - Head Exam Head Exam: NORMOCEPHALIC - Eye Exam Eye Exam: Normal appearance. absent: Scleral icterus - ENT Exam ENT Exam: Mucous Membranes Moist - Respiratory Exam Respiratory Exam: Clear to Ausculation Bilateral, NORMAL BREATHING PATTERN. absent: Respiratory Distress - Cardiovascular Exam Cardiovascular Exam: +S1, +S2 - GI/Abdominal Exam GI & Abdominal Exam: Soft, Tenderness, Normal Bowel Sounds. absent: Guarding, Organomegaly, Rebound Additional comments: RUQ - Extremities Exam Extremities Exam: Normal Capillary Refill. absent: Calf Tenderness, Pedal Edema - Neurological Exam Neurological Exam: Alert, Awake, Oriented x3 Assessment and Plan - Assessment and Plan (Free Text) Assessment: Assessment: right upper quadrant abdominal pain, status post endoscopy found to have appearance of short segment Lopez's esophagus, status post biopsy Gallstones Liver cyst, 5 mm UTI Morbid obesity Iron deficiency anemia Plan: Discussed with patient regarding low-fat diet Follow-up D biopsies Avoid NSAIDs Continue Levaquin Continue PPI Discussed with patient in detail to follow up in office 1-2 weeks post discharge. Discussed with Dr. Barcenas.
[2017-04-21] MEDS ORDERED: Pantoprazole 40 mg EC Tab PO SCH (10:00)
== END 2017-04-20 13:41 | disposition home or self-care (01) ==
LOC: ED 21:21 → ERH 04-18 00:53 → 3RNO 04-18 01:40 → OBSVTOIN 04-18 18:56 → INTOOBSV 04-18 18:56
PROVIDERS: ADMIT Internal Medicine; ATTEND Internal Medicine
DX: K22.70 Barrett's esophagus without dysplasia (principal); K80.20 Calculus of gallbladder without cholecystitis without obstruction; K76.89 Other specified diseases of liver; K29.50 Unspecified chronic gastritis without bleeding; D50.9 Iron deficiency anemia, unspecified; E66.01 Morbid (severe) obesity due to excess calories; G43.909 Migraine, unspecified, not intractable, without status migrainosus; J45.909 Unspecified asthma, uncomplicated; N39.0 Urinary tract infection, site not specified; N83.202 Unspecified ovarian cyst, left side; Z98.51 Tubal ligation status; Z91.013 Allergy to seafood; R40.2412 Glasgow coma scale score 13-15, at arrival to emergency department; Z68.38 Body mass index [BMI] 38.0-38.9, adult
CPT/HCPCS: 36415; 43239; 74177; 74183; 76700; 76856; 80048; 80053; 80061; 81001; 82607; 82746; 83036; 83540; 83550; 83690; 83735; 84443; 84703; 85025; 85027; 85610; 85730; 87804; 88305; 88312; 88342; 96374; 96375; 96376; 99285; A9579; C9113; G0378; J1885; J2250; J2270; J2405; J2704; J3010; J7040; J7120; Q9967

== ENCOUNTER 2018-07-31 12:49 | Emergency (ER) | payer BC, OTHER ==
[2018-07-31 12:50] VITALS: BMI 39.0
[2018-07-31 13:09] VITALS: BP 145/85; PULSE 84; RESP 18; TEMP 98.9; O2SAT 100
--- NOTE | 2018-07-31 14:09 | ED PDOC ---
Arrival/HPI - General Chief Complaint: Abnormal Skin Integrity Time Seen by Provider: 07/31/18 12:55 - History of Present Illness Narrative History of Present Illness (Text): 32 yr old female w/ hx of tubal ligation, lap choley, HTN p/w L sided neck cyst pain. Pt notes that she saw her PMD yesterday and was prescribed abx and pain meds by PMD but notes that the pain continues so came in to be evaluated. She notes pain is a throbbing, L sided of neck. She is unsure the name of the antibiotics. She notes a bump to that area, but no redness to the area. She notes same size of the bump as yesterday. She endorsed that she expected the bump to go away after the first dose of antibiotics. No fall or trauma. No headache, nausea or vomiting. No fall or trauma. No fever, chills or night sweats. No stiff neck. She notes taking one round of abx last night and this morning, tolerating it well. No other complaints. Past Medical History - Cardiac Hx Hypertension: Yes (gestational) - Pulmonary Hx Respiratory Disorders: No - Neurological Hx Neurological Disorder: No - HEENT Hx HEENT Disorder: No - Renal Hx Renal Disorder: No - Endocrine/Metabolic Hx Endocrine Disorders: No - Hematological/Oncological Hx Anemia: Yes - Integumentary Hx Dermatological Disorder: No - Musculoskeletal/Rheumatological Hx Arthritis: Yes - Gastrointestinal Hx Gall Bladder Disease: Yes (Stones) - Genitourinary/Gynecological Hx Genitourinary Disorders: No - Psychiatric Hx Emotional Abuse: No Hx Physical Abuse: No Hx Substance Use: No - Surgical History Hx Cholecystectomy: Yes Hx Tubal Ligation: Yes - Anesthesia Hx Anesthesia: Yes Hx Anesthesia Reactions: No Hx Malignant Hyperthermia: No - Suicidal Assessment Feels Threatened In Home Enviroment: No Family/Social History Family/Social History: No Known Family HX Smoking Status: Never Smoked Hx Alcohol Use: Yes Frequency of alcohol use: Socially Hx Substance Use: No Allergies/Home Meds Allergies/Adverse Reactions: Allergies scallops Allergy (Mild, Verified 07/31/18 13:08) RASH Home Medications: Home Meds Medication Instructions Recorded Confirmed oxyCODONE/Acetaminophen [Percocet 1 mg PO Q4 PRN 05/10/17 05/10/17 5/325 mg Tab] Review of Systems - Review of Systems Constitutional: absent: Fatigue, Weight Change, Fevers, Night Sweats Eyes: absent: Vision Changes, Photophobia, Eye Pain ENT: absent: Hearing Changes, Tinnitus, TMJ Pain, Voice Changes Respiratory: absent: SOB, Cough, Sputum, Wheezing Cardiovascular: absent: Chest Pain, Palpitations, Edema, Calf Pain Gastrointestinal: absent: Abdominal Pain, Stool Changes, Constipation, Diarrhea Genitourinary Female: absent: Dysuria, Frequency, Hematuria, Urine Output Changes Musculoskeletal: Neck Pain (at cyst site). absent: Arthralgias, Back Pain, Joint Swelling, Myalgias Skin: absent: Rash, Pruritis, Skin Lesions, Laceration Neurological: absent: Headache, Dizziness Endocrine: absent: Diaphoresis, Polyuria Hemo/Lymphatic: absent: Adenopathy, Easy Bleeding Physical Exam Vital Signs Temp Pulse Resp BP Pulse Ox 07/31/18 13:08 98.9 F 84 18 145/85 100 Temperature: Afebrile Blood Pressure: Normal Pulse: Regular Respiratory Rate: Normal Appearance: Positive for: Well-Appearing Pain Distress: None Mental Status: Positive for: Alert and Oriented X 3 - Systems Exam Head: Present: Atraumatic, Normocephalic. No: Tenderness Pupils: Present: PERRL Extroacular Muscles: Present: EOMI Conjunctiva: Present: Normal Ears: Present: Normal, NORMAL TM. No: Erythema Mouth: Present: Moist Mucous Membranes Pharnyx: Present: Normal. No: ERYTHEMA, EXUDATE, TONSILS ENLARGED Nose (External): Present: Atraumatic. No: Abrasion Nose (Internal): Present: Normal Inspection Neck: Present: Normal Range of Motion, Trachea Midline, Other (L sided posterior neck mass noted, ttp, no fluctuance or erythema or crepitus. Indurated without signs of cellulitis. No midline cervical tenderness or involvement). No: Meningeal Signs, MIDLINE TENDERNESS, JVD, Lymphadenopathy, Bruit Respiratory/Chest: Present: Clear to Auscultation, Good Air Exchange. No: Respiratory Distress, Accessory Muscle Use, Wheezes, Decreased Breath Sounds, Rales Cardiovascular: Present: Regular Rate and Rhythm, Normal S1, S2. No: Murmurs Abdomen: Present: Normal Bowel Sounds. No: Tenderness, Distention, Peritoneal Signs, Rebound, Guarding Back: Present: Normal Inspection. No: CVA Tenderness, Midline Tenderness, Paraspinal Tenderness, Pain with Leg Raise, Decubitus Ulcer Upper Extremity: Present: Normal Inspection, Normal ROM, NORMAL PULSES. No: C yanosis, Edema Lower Extremity: Present: Normal Inspection, NORMAL PULSES. No: Edema, CALF TENDERNESS Neurological: Present: GCS=15, CN II-XII Intact, Speech Normal, Motor Func Grossly Intact Skin: Present: Warm, Dry, Normal Color. No: Rashes, Diaphoretic, Erythematous Lymphatic: No: Cervical Adenopathy (no posterior or ant chain ) Psychiatric: Present: Alert, Oriented x 3, Normal [facility] Medical Decision Making ED Course and Treatment: 32 yr old F p/w L sided posterior neck cyst pain. No drainable site noted on exam: no fluctuance. no meningeal signs on exam. No DESIR or fever/ chills or night sweats. Pt well appearing in NAD. Will US bedside for eval: pt has been taking abx <48 hours. Vitals unremarkable 07/31/18 14:23 US done bedside: cyst noted 1x1cm, 1cm below surface. No cobblestoning noted. Likely cyst vs abscess without drainable pocket noted on exam given induration. Given <48 hours of abx, well appearing, non mature abscess vs cyst, normal vitals, pain improves w/ motrin per pt, will send home with continued ABX and have pt followup w/ general surgery + derm for possible outpt cyst removal. Pt in NAD, agreeable to plan. Disposition/Present on Arrival - Present on Arrival Any Indicators Present on Arrival: No History of DVT/PE: No History of Uncontrolled Diabetes: No Urinary Catheter: No History of Decub. Ulcer: No History Surgical Site Infection Following: None - Disposition Have Diagnosis and Disposition been Completed?: Yes Diagnosis: Cyst of neck, Abscess Disposition: HOME/ ROUTINE Disposition Time: 14:28 Condition: STABLE Discharge Instructions (ExitCare): Boil (DC) Additional Instructions: DO WARM COMPRESSESS PREVIOULSY INSTRUCTED. FOLLOWUP WITH DERM / GENERAL SURGERY AND CONTINUE THE ANTIBIOTICS. YAMILETH DENISE, thank you for letting us take care of you today. Your provider was Steven Carlisle and you were treated for neck and facial problem. The emergency medical care you received today was directed at your acute symptoms. If you were prescribed any medication, please fill it and take as directed. It may take several days for your symptoms to resolve. Return to the Emergency Department if your symptoms worsen, do not improve, or if you have any other problems. Please contact your doctor or call one of the physicians/clinics you have been referred to that are listed on the Patient Visit Information form that is included in your discharge packet. Bring any paperwork you were given at [place] [facility] with you along with any medications you are taking to your follow up visit. Our treatment cannot replace ongoing medical care by a primary care provider outside of the emergency department. Thank you for allowing the [facility] team to be part of your care today. If you had an X-Ray or CT scan: A Radiologist will review the ED reading if any change in treatment is needed we will contact you. If you had a blood, urine, or wound culture: It will take several days for the results, if any change in treatment is needed we will contact you. If you had an STI test: It will take 48 hours for the results. Please call after 1 week if you have not heard back. Referrals: [facility] [Outside] - Follow up with primary [facility] [Outside] - Follow up with primary [facility] at [facility] [Outside] - Follow up with primary Velasquez Camacho MD [Staff Provider] - Follow up with primary Diane Graves MD [Staff Provider] - Follow up with primary Rosy Maharaj MD [Medical Doctor] - Follow up with primary Forms: [facility] ([place])
== END 2018-07-31 14:48 | disposition home or self-care (01) ==
LOC: ED 12:49
DX: L72.9 Follicular cyst of the skin and subcutaneous tissue, unspecified (principal); L02.11 Cutaneous abscess of neck; I10 Essential (primary) hypertension; Z98.51 Tubal ligation status